=== PATIENT | male | born 1990 | race Caucasian/White ===

== ENCOUNTER → 2025-05-17 12:55 | Outpatient (CLI) | payer OTHER, SELFPAY ==
--- NOTE | 2025-05-17 12:59 | DI.MRI.S_ITS ---
PROCEDURE: MR SHOULDER LT W CON INDICATIONS: Anterior dislocation of left humerus, initial enco TECHNIQUE: After the administration of 12 mL of dilute intra-articular Gadolinium contrast, oblique coronal T1 and T2 spin echo with fat saturation, oblique sagittal T1 spin echo with and without fat saturation, oblique sagittal T2 fast spin echo with fat saturation, axial T1 spin echo with fat saturation through the shoulder. COMPARISON: None. FINDINGS: Image quality: Excellent. Rotator cuff: Tendinosis and low-grade articular surface partial-thickness tear involving distal supraspinatus at its insertion on humeral head is seen. Distal infraspinatus tendinosis is noted. Low-grade intrasubstance partial-thickness tear involving distal subscapularis is seen. No full-thickness rotator cuff tendon rupture. No rotator cuff muscle atrophy on sagittal images. Bones and bursae: Marrow edema is seen involving posterior lateral aspect of humeral head with Hill-Sachs defect. No Bankart fracture is seen. Mild acromioclavicular joint osteoarthritic changes are noted.. Capsule and soft tissues: The glenohumeral ligaments are intact. Contrast distension, signal abnormality and fraying involving anterior inferior glenoid labrum consistent with Bankart lesion. The long head of the biceps tendon demonstrates normal location and morphology. The rotator interval appears normal, without fibrosis. The coracohumeral ligament is of normal thickness. No intra-articular bodies. IMPRESSION: 1. Acute to subacute appearing Hill-Sachs fracture involving posterior lateral aspect of humeral head with marrow edema. No Bankart fracture. Mild acromioclavicular joint osteoarthritis. No intra-articular loose bodies. 2. Low-grade articular surface partial-thickness tear involving distal supraspinatus. Distal infraspinatus tendinosis. Low-grade intrasubstance partial-thickness tear involving distal subscapularis. No full-thickness rotator cuff tendon rupture. 3. Suggestion of anterior-inferior glenoid labral tear, consistent with Bankart lesion. 4. Proximal long head of biceps tendon is intact. Dictated by: Zay Jiang M.D. on 05/17/2025 at 14:44 Approved by: Zay Jiang M.D. on 05/17/2025 at 15:01
--- NOTE | 2025-05-17 12:59 | DI.RAD.S_ITS ---
PROCEDURE: FL ARTHROGRAM SHOULDER LT INDICATIONS: Anterior dislocation of left humerus, initial encounter COMPARISON: None. TECHNIQUE: The indications, alternatives, benefits, risks, and complications of the procedure were explained to the patient. Written informed consent was obtained and placed in the chart. The shoulder was examined fluoroscopically and a site for needle placement chosen for entry into the glenohumeral joint from an anterior approach. The skin was prepped and draped in a sterile fashion, and 1% lidocaine infiltrated from skin down to joint capsule. A spinal needle was inserted into the glenohumeral joint, and a small amount of iodinated contrast media injected to confirm intra-articular placement of the needle tip. This was followed by approximately 12 mL dilute solution of a gadolinium containing MR contrast agent. The needle was removed and a dressing was applied. The patient was given postprocedural instructions and sent to the MR suite for MR imaging. FINDINGS: A single fluoroscopic spot image demonstrates intra-articular location of injected iodinated contrast. IMPRESSION: Successful fluoroscopically guided administration of dilute Gadolinium solution into the shoulder joint for MR arthrogram. Dictated by: Ana Syed Baldo Interpreted: Steve Aviles MD on 05/17/2025 at 16:06 Transcribed by: SUSSY on 05/17/2025 at 16:06 Approved by: Steve Aviles M.D. on 05/18/2025 at 0:40
[2025-05-17] MEDS: LIDOCAINE 1% 20 ML INJ (13:54)
[2025-05-17] MEDS: SODIUM CHLORIDE 0.9 % 20 ML VIAL IV (13:55)
== END ==
LOC: RAD 12:58
PROVIDERS: PCP Nurse Practitioner Family; Referring Provider Nurse Practitioner Family; Visit Provider Nurse Practitioner Family
DX: S42.292A Other displaced fracture of upper end of left humerus, initial encounter for closed fracture (principal); S46.012A Strain of muscle(s) and tendon(s) of the rotator cuff of left shoulder, initial encounter; S43.015A Anterior dislocation of left humerus, initial encounter; M19.012 Primary osteoarthritis, left shoulder; V29.39XA Other motorcycle (driver) (passenger) injured in unspecified nontraffic accident, initial encounter
CPT/HCPCS: 23350; 73040; 73222; A9579; Q9967